=== PATIENT | female | born 1975 | race Two or more races ===

== ENCOUNTER 2019-12-22 08:16 | Emergency (ER) | payer MEDICAID ==
[~2019-12-22] VITALS: Ht 160 cm; Wt 73.0 kg
[2019-12-22] MEDS ORDERED: KETOROLAC TROMETHAMINE 60 MG/2 ML VIAL IM ONE (10:00)
[2019-12-22] MEDS ORDERED: HYDROCODONE/ACETAMINOPHEN 5-325 MG TABLET PO ONE (10:00)
[2019-12-22] MEDS ORDERED: BACLOFEN 10 MG TABLET PO ONE (10:00)
[2019-12-22 10:30] VITALS: BP 131/79
== END 2019-12-22 10:55 | disposition home or self-care (01) ==
LOC: EMS 08:19
DX: S39.012A Strain of muscle, fascia and tendon of lower back, initial encounter (principal); X58.XXXA Exposure to other specified factors, initial encounter; Y93.89 Activity, other specified; Y92.89 Other specified places as the place of occurrence of the external cause; Y99.8 Other external cause status
CPT/HCPCS: 96372; 99283; J1885